=== PATIENT | female | born 1975 | race Caucasian/White ===

== ENCOUNTER 2024-02-27 07:59 | Emergency (ER) | payer OTHER ==
[~2024-02-27] VITALS: Ht 162.6 cm; Wt 54.5 kg
[~2024-02-27 07:59] MED LIST: NEXIUM 24HR20 M1 PO
[2024-02-27 08:07] VITALS: TEMP 98.1
[2024-02-27] MEDS ORDERED: ZITHROMAX Z PA250 MG PO (08:44)
[2024-02-27] MEDS ORDERED: PERCOCET 325 MG1 TA2 PO (08:44)
[2024-02-27] MEDS ORDERED: cefTRIAXone 1 G,Lidocaine PF 1% 2.1 ML IM ONE (08:45)
[2024-02-27 09:04] VITALS: BP 143/79; PULSE 53
== END 2024-02-27 09:05 | disposition home or self-care (01) ==
LOC: COL.ER 07:59
DX: K04.7 Periapical abscess without sinus (principal); F17.200 Nicotine dependence, unspecified, uncomplicated
CPT/HCPCS: J0696